=== PATIENT | female | born 1990 ===

== ENCOUNTER 2021-10-22 21:22 | Emergency (ER) | payer MEDICAID ==
[2021-10-22 21:28] VITALS: BP 102/44
--- NOTE | 2021-10-22 22:04 | XRay Report ---
CHEST 2 VIEWS INDICATION: COUGH. COMPARISON: None. FINDINGS: Support devices: None. Heart: Within normal limits. Lungs/Pleura: No acute air space or interstitial disease. No significant pleural effusion. IMPRESSION: No acute findings. Signer Name: Jerry Ruiz MD Signed: 10/22/2021 9:59 PM Workstation Name: [id number]
== END 2021-10-23 11:12 | disposition left against medical advice (07) ==
LOC: ED 21:22
DX: R07.9 Chest pain, unspecified (principal); Z53.21 Procedure and treatment not carried out due to patient leaving prior to being seen by health care provider
CPT/HCPCS: 71046